=== PATIENT | male | born 1990 | race Hispanic/Latino ===

== ENCOUNTER → 2016-12-05 | Outpatient (CLI) | payer OTHER ==
--- NOTE | 2016-12-05 16:46 | REP ---
MR LUMBAR SPINE WITHOUT AND WITH CONTRAST: HISTORY: Back pain. There is no disc bulge of herniation at the L1-2 and L5-S1 levels. The nerves exit the neural foramina without compression. A diffuse disc bulge is present at the L2-3 level. There is minimal compression of the thecal sac. The L2 nerves exit the neural foramina without compression. A diffuse disc bulge is present at the L3-4 level. There is minimal compression of the thecal sac. The L3 nerves exit the neural foramina without compression. A diffuse disc bulge is present at the L4-5 level. There is minimal compression of the thecal sac. The L4 nerves exit the neural foramina without compression. The conus medullaris is normal in appearance terminating at the level of the T12-L1 intervertebral discs. Normal signal intensity is present in the lumbar intervertebral discs and vertebral bodies. IMPRESSION: Diffuse disc bulges at the L2-3 through L4-5 levels with minimal thecal sac compression. Signed by Matias Thomson MD 12/08/2016 08:30 A
== END | disposition home or self-care (01) ==
LOC: M RAD 14:41
PROVIDERS: ATTEND Physician Assistant
DX: M51.06 Intervertebral disc disorders with myelopathy, lumbar region (principal)
CPT/HCPCS: 72158; A9576

== ENCOUNTER 2019-06-07 00:34 | Emergency (ER) | payer OTHER ==
[2019-06-07 01:09] LABS: HEMATOCRIT 44.6 % (42.0-52.0); HEMOGLOBIN 15.6 g/dl (13.5-17.5); MEAN CORPUSCULAR HEMOGLOBIN 30.7 pg (27.0-33.0); MEAN CORPUSCULAR VOLUME 87.8 fl (80.0-96.0); PLATELET COUNT, AUTOMATED 326 10^3/uL (150-450); RED BLOOD COUNT 5.08 10^6/uL (4.30-6.10); WHITE BLOOD COUNT 11.5 10^3/uL (4.0-10.0)
[2019-06-07 01:37] LABS: AMPHETAMINES LEVEL URINE NEGATIVE (NEGATIVE); BARBITURATES URINE NEGATIVE (NEGATIVE); BENZODIAZEPINES URINE NEGATIVE (NEGATIVE); CANNABINOIDS URINE NEGATIVE (NEGATIVE); COCAINE METABOLITE URINE NEGATIVE (NEGATIVE); METHADONE URINE NEGATIVE (NEGATIVE); OPIATES URINE NEGATIVE (NEGATIVE); PHENCYCLIDINE URINE NEGATIVE (NEGATIVE)
[2019-06-07 01:47] LABS: ACETAMINOPHEN LEVEL < 2.0 UG/ML (10.0-30.0); ALBUMIN 4.1 GM/DL (3.2-5.2); ALT/SGPT 47 U/L (12-78); BILIRUBIN,DIRECT < 0.1 MG/DL (0.0-0.2); BILIRUBIN,TOTAL 0.1 MG/DL (0.2-1.0); BLOOD UREA NITROGEN 9 MG/DL (7-18); CALCIUM LEVEL 8.9 MG/DL (8.5-10.1); CARBON DIOXIDE LEVEL 29 MEQ/L (21-32); CHLORIDE LEVEL 107 MEQ/L (98-107); CREATININE FOR GFR 1.38 MG/DL (0.70-1.30); ETHYL ALCOHOL (ETHANOL) 0.301 % (0.000-0.010); GLOMERULAR FILTRATION RATE > 60.0 (>60); GLUCOSE, FASTING 145 MG/DL (70-100); POTASSIUM SERUM 3.9 MEQ/L (3.5-5.1); SALICYLATE LEVEL < 1.7 MG/DL (5.0-30.0); SODIUM LEVEL 145 MEQ/L (136-145); TOTAL PROTEIN 7.7 GM/DL (6.4-8.2)
[2019-06-07 12:06] VITALS: BP 140/89
== END 2019-06-07 12:07 | disposition home or self-care (01) ==
LOC: M ED 00:34
DX: F10.988 Alcohol use, unspecified with other alcohol-induced disorder (principal); Z91.011 Allergy to milk products
CPT/HCPCS: 36415; 80048; 80076; 80307; 84443; 85027; 99284; G0480

== ENCOUNTER 2019-08-08 20:58 | Inpatient (IN) | payer OTHER ==
[~2019-08-08] VITALS: Ht 175.3 cm; Wt 90.4 kg
[2019-08-08 21:31] LABS: HEMATOCRIT 50.5 % (42.0-52.0); HEMOGLOBIN 17.2 g/dl (13.5-17.5); MEAN CORPUSCULAR HEMOGLOBIN 30.4 pg (27.0-33.0); MEAN CORPUSCULAR HGB CONC 34.1 g/dl (32.0-36.5); MEAN CORPUSCULAR VOLUME 89.2 fl (80.0-96.0); PLATELET COUNT, AUTOMATED 350 10^3/uL (150-450); RED BLOOD COUNT 5.66 10^6/uL (4.30-6.10); WHITE BLOOD COUNT 10.7 10^3/uL (4.0-10.0)
[2019-08-08 22:05] LABS: AMPHETAMINES LEVEL URINE NEGATIVE (NEGATIVE); BARBITURATES URINE NEGATIVE (NEGATIVE); BENZODIAZEPINES URINE NEGATIVE (NEGATIVE); CANNABINOIDS URINE NEGATIVE (NEGATIVE); COCAINE METABOLITE URINE NEGATIVE (NEGATIVE); METHADONE URINE NEGATIVE (NEGATIVE); OPIATES URINE NEGATIVE (NEGATIVE); PHENCYCLIDINE URINE NEGATIVE (NEGATIVE)
[2019-08-08 22:09] LABS: ACETAMINOPHEN LEVEL < 2.0 UG/ML (10.0-30.0); ALBUMIN 4.2 GM/DL (3.2-5.2); ALT/SGPT 47 U/L (12-78); BILIRUBIN,DIRECT 0.1 MG/DL (0.0-0.2); BILIRUBIN,TOTAL 0.3 MG/DL (0.2-1.0); BLOOD UREA NITROGEN 9 MG/DL (7-18); CALCIUM LEVEL 8.7 MG/DL (8.5-10.1); CARBON DIOXIDE LEVEL 26 MEQ/L (21-32); CHLORIDE LEVEL 109 MEQ/L (98-107); ETHYL ALCOHOL (ETHANOL) 0.337 % (0.000-0.010); GLOMERULAR FILTRATION RATE > 60.0 (>60); GLUCOSE, FASTING 108 MG/DL (70-100); SALICYLATE LEVEL < 1.7 MG/DL (5.0-30.0); SODIUM LEVEL 146 MEQ/L (136-145); THYROID STIMULATING HORMONE 0.634 uIU/ML (0.358-3.740); TOTAL PROTEIN 7.6 GM/DL (6.4-8.2)
[2019-08-09] MEDS ORDERED: ACETAMINOPHEN TAB 650MG DOSE (2X325MG) PO PRN (13:15)
[2019-08-09] MEDS ORDERED: LORazepam 2 MG TAB PO PRN (13:15)
[2019-08-09] MEDS ORDERED: MOM 30ML SUSPENSION UDC PO PRN (13:15)
[2019-08-09] MEDS ORDERED: MAALOX 30 ML SUSP *UDC PO PRN (13:15)
[2019-08-09 14:07] VITALS: BP 146/94
[2019-08-09 14:08] VITALS: BP 146/94
[2019-08-09] MEDS: MULTIVITAMINS/MINERALS THERAP 1 TAB PO SCH (15:33)
[2019-08-09] MEDS: FOLIC ACID 1 MG TAB PO SCH (15:33)
[2019-08-09] MEDS: THIAMINE 100 MG TAB PO SCH (21:32)
[2019-08-09] MEDS: traZODone 50 MG TAB PO PRN (21:33)
[2019-08-10 06:35] VITALS: BP 134/75
[2019-08-10] MEDS: FOLIC ACID 1 MG TAB PO SCH (08:06)
[2019-08-10] MEDS: THIAMINE 100 MG TAB PO SCH ×2 (08:06→21:50)
[2019-08-10] MEDS: MULTIVITAMINS/MINERALS THERAP 1 TAB PO SCH (08:06)
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
[2019-08-10 12:19] VITALS: BP 158/80
[2019-08-10 12:21] VITALS: BP 158/80
[2019-08-10] MEDS ORDERED: VIVI380I IM (13:13)
[2019-08-10] MEDS ORDERED: NALTREXONE 50 MG TAB PO ONE (14:00)
[2019-08-10] MEDS ORDERED: buPROPion **XL** TABLET 150MG (WELLBUTRIN XL) PO ONE (14:00)
[2019-08-10 14:19] VITALS: BP 142/72
[2019-08-10 16:52] VITALS: BP 123/71
[2019-08-10] MEDS: ACAMPROSATE CALCIUM 333 MG TABLET (CAMPRAL) PO SCH (21:49)
[2019-08-11 06:29] VITALS: BP 135/81
[2019-08-11] MEDS: FOLIC ACID 1 MG TAB PO SCH (08:39)
[2019-08-11] MEDS: THIAMINE 100 MG TAB PO SCH ×2 (08:39→22:04)
[2019-08-11] MEDS: MULTIVITAMINS/MINERALS THERAP 1 TAB PO SCH (08:39)
[2019-08-11 08:42] VITALS: BP 164/86
[2019-08-11] MEDS ORDERED: buPROPion **XL** TABLET 150MG (WELLBUTRIN XL) PO SCH (09:00)
[2019-08-11] MEDS ORDERED: NALTREXONE 50 MG TAB PO SCH (09:00)
--- NOTE | 2019-08-11 10:50 | CR ---
DATE OF CONSULTATION: 08/10/2019 at 6 p.m.. REASON FOR CONSULTATION: Medical evaluation inpatient psychiatry unit. 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 He is in the inpatient psychiatry unit secondary to threatening suicidal ideation with a firearm. On admission patient's alcohol blood level of 0.33. He has been placed on alcohol withdrawal protocol. At this point and time he has only received one dose of Ativan and says that he is doing quite well in regards to any noticeable symptoms of alcohol withdrawal symptoms. ALLERGIES: No known drug allergies. He does have an allergy to milk protein. MEDICATIONS: As far as home medications the patient does not take any home medications. He has not had any surgeries. SOCIAL HISTORY: The patient is an enlisted soldier. He does not smoke. He will binge drink from time to time. He has not used any illicit drugs since joining the . FAMILY HISTORY: Notable for depression, diabetes, in several members. REVIEW OF SYSTEMS: Otherwise negative. PHYSICAL EXAMINATION: The patient's temperature is 98.7, heart rate 70 and regular, respirations 15. General, Mr. Hernandez is a healthy appearing adult male who appears in no acute distress. His head is atraumatic. Pupils are symmetric and reactive to light. Extraocular movements are full in all directions. Tympanic membranes are visualized bilaterally. He has cerumen in the left ear canal precluding evaluation of his left tympanic membrane. His right tympanic membrane is visualized and is without any acute pathology. His naris are patent. Oropharynx is clear without erythema. Mucosa is moist, no abscess, ulcers or other lesions on his tongue are appreciated. His neck is supple. No palpable lymphadenopathy. No thyromegaly. Lungs sounds are appreciated bilaterally. He has no adventitious lung sounds are appreciated bilaterally. He had no adventitious lung sounds on osculation. Heart S1, S2 without any audible murmurs or gallops. His pulse check indicates that he has a normal sinus rhythm. His abdomen is soft and nontender and nondistended with active bowel sounds. No palpable organomegaly. His extremities are without any cyanosis, clubbing or edema. Neurologic exam, cranial nerves II through XII are grossly intact. No focal or neurologic deficit. His gait is normal appearance. His coordination os symmetric without any noticeable deviations. Psychiatric, the patient is alert and he is shy does not make good eye contact. He has a reserved manner. IMAGING: None were done during this hospitalization. LABORATORY: White count 10.7, hemoglobin 17.2, hematocrit 15.5, platelet counts 350, sodium 143, potassium 109, bicarbonate 26, anion gap 11, creatinine 1, glucose 108, calcium 8.7, AST 33, ALT 47, albumin 4.3, TSH 0.63. Urine drug screen was negative. Acetaminophen level was less than 2.0, alcohol level was 0.337. IMPRESSION: 1. Mild acute depression. 2. Suicidal ideation. 3. Acute alcohol intoxication. 4. History of alcoholism. 5. Normal adult male physical examination. RECOMMENDATIONS: Patient is stable from a medical standpoint. I agree with placing him on alcohol withdrawal protocol and continue to monitor him. Please contact me should any medical issues arise.
--- NOTE | 2019-08-11 12:40 | MHIPNPDOC ---
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 He had reportedly made some suicidal statements but had fallen asleep next to an antique gun. His became concerned and subsequently called the police, who had brought him in for evaluation. After he became sober, he was admitted out of an abundance of caution. When the patient was met with, he emphatically denied that he had any suicidal thoughts and that while he was intoxicated he likely said various things, but that he does have various antique guns that he doesn't have ammunition for and that he has been currently in [facility] treatment for alcohol. He reports that he's concerned about getting in trouble for another use of alcohol and reports a significant alcohol use problem recently. He describes that he has been expe riencing some depression with fatigue, loss of interest, moodiness, loss of energy, and concentration and focus deficits as well as insomnia in the setting of financial stressors and marital stressors as well, with a recent separation becoming possible. He reports that he is interested in getting treatment for his alcohol and depression. He reports that, while he'll go to work, his depression continues to get worse and that he had not realized the signs and symptoms. He had an intake appointment with behavioral health and has a therapist but no medication prescriber. Interval History The patient is met with today. He reports that he's had some improved mood, energy and less fatigue. He reported he was able to sleep well last night, but does note some fatigue today. His alcohol withdrawal scores have been consistently low. He reports that the Naltrexone is helpful, and that he doesn't notice craving for alcohol at 50 and he feels positive. His insurance declined to pay for Vivitrol. The patient's chain of command was uncomfortable with him returning home as they want to complete an investigation as they were concerned about the presence of a firearm that could be illegal. The safety planning is not clear at this time and the chain of command wishes to have more time to thoroughly investigate the situation. Nursing note no behavioral problems, attends groups well. Review Of Systems Denies any chest pain, palpitations, shortness of breath, dizziness, tremors, headache, dry mouth, constipation, nausea, vomiting, diarrhea. Admits to mild diarrhea secondary to his alcohol use which he states happens afterwards. Psychotherapy None on this visit. Vital Signs Reviewed. Mental Status Examination General: Well dressed with good hygiene Speech: Spontaneous and fluid Thought processes: Linear and logical MSK: Smooth and coordinated gait, no signs of tremors or involuntary orofacial movements Thought content: Less hopelessness Abstract reasoning, and computation: Intact Description of associations: Intact Description of abnormal or psychotic thoughts: Denies any suicidal or homicidal ideation. Denies any auditory or visual hallucinations. Does not appear to be responding to internal stimuli. Does not appear to be endorsing any bizarre or paranoid ideation. Judgment: fair Insight: fair Orientation: Alert and orientated 3 Cognition: Grossly normal Recent and remote memory: Intact Attention span and concentration: Intact Fund of knowledge: Adequate Mood: "Okay" Affect: Less dysthymic. with a constricted range Diagnoses Unspecified depressive disorder. Rule out adjustment versus substance use versus MDD. Alcohol use disorder, severe. Assessment and Plan Increase Wellbutrin to 300 mg daily, Naltrexone to 100 mg daily with positive effects noted so far. Likely discharge on Thursday once safe discharge can be arranged. Disposition Patient will likely be discharged on Thursday once a safe discharge could be ascertained due to the aforementioned issues that have brought him in with firearms, coordination of chain of command is underway. Time Spent 15 minutes [id number]. Vital Signs Vital Signs Date Time Temp Pulse Resp B/P (MAP) Pulse Ox O2 Delivery O2 Flow Rate FiO2 08/11/19 08:42 63 164/86 08/11/19 06:29 97.8 14 08/09/19 14:07 99 08/09/19 13:32 Room Air Current Medications Current Medications Medications (Trade) Dose Ordered Sig/Ana Route PRN Reason Start Time Stop Time Status Last Admin Dose Admin Acamprosate (Campral) 333 mg QHS PO 08/10/19 21:00 08/10/19 21:49 Acetaminophen (Tylenol Tab) 650 mg Q6HP PRN PO HEADACHE or DISCOMFORT 08/09/19 13:15 Al Hydrox/Mg Hydrox/Simethicone (Mylanta) 30 ml Q4HP PRN PO HEARTBURN/INDIGESTION 08/09/19 13:15 Bupropion HCl (Wellbutrin Xl) 150 mg DAILY PO 08/11/19 09:00 08/11/19 08:40 Folic Acid (Folic Acid) 1 mg DAILY PO 08/09/19 09:00 08/11/19 08:39 Home Med (Med Rec Complete!) ASDIRECTED XX 08/09/19 14:15 08/09/19 14:15 DC Lorazepam (Ativan) 2 mg ASDIRECTED PRN PO SEE PROTOCOL 08/09/19 13:15 08/10/19 12:44 Magnesium Hydroxide (Milk Of Magnesia) 30 ml DAILYPRN PRN PO CONSTIPATION 08/09/19 13:15 Multivitamins (Theragram-M) 1 tab DAILY PO 08/09/19 09:00 08/11/19 08:39 Naltrexone HCl (Revia) 50 mg DAILY PO 08/11/19 09:00 08/11/19 08:40 Thiamine HCl (Thiamine HCl) 100 mg BID PO 08/09/19 21:00 08/12/19 20:59 08/11/19 08:39 Trazodone HCl (Desyrel) 50 mg QHSP PRN PO INSOMNIA 08/09/19 13:15 08/09/19 21:33 Allergies Coded Allergies: milk (Verified Allergy, Unknown, 08/08/19) JULISSA RAINEY DO Aug 11, 2019 12:40
[2019-08-11 17:18] VITALS: BP 144/76
[2019-08-11 18:00] VITALS: BP 144/76
[2019-08-11 22:00] VITALS: BP 144/76
[2019-08-11] MEDS: ACAMPROSATE CALCIUM 333 MG TABLET (CAMPRAL) PO SCH (22:04)
[2019-08-12 06:05] VITALS: BP 124/65
--- NOTE | 2019-08-12 09:30 | MHIPNPDOC ---
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 He had reportedly made some suicidal statements but had fallen asleep next to an antique gun. His became concerned and subsequently called the police, who had brought him in for evaluation. After he became sober, he was admitted out of an abundance of caution. When the patient was met with, he emphatically denied that he had any suicidal thoughts and that while he was intoxicated he likely said various things, but that he does have various antique guns that he doesn't have ammunition for and that he has been currently in [facility] treatment for alcohol. He reports that he's concerned about getting in trouble for another use of alcohol and reports a significant alcohol use problem recently. He describes that he has been exp eriencing some depression with fatigue, loss of interest, moodiness, loss of energy, and concentration and focus deficits as well as insomnia in the setting of financial stressors and marital stressors as well, with a recent separation becoming possible. He reports that he is interested in getting treatment for his alcohol and depression. He reports that, while he'll go to work, his depression continues to get worse and that he had not realized the signs and symptoms. He had an intake appointment with behavioral health and has a therapist but no medication prescriber. Interval History Patient is met with today with his . He reports that he is doing better with improved mood, less fatigue, better motivation, less concentration and focus problems and more hope for the future. reports that she was interested in the discharge process. Currently, the investigation is pending with Rajesh Mills with the current discharge plan being Thursday. He reports he's doing well, no major behavioral problems on the unit. Nursing staff note that he is social and amenable on the unit. Reports no cravings with the naltrexone, tolerating well. Review Of Systems General: Denies fever or weight changes Cardiovascular: Denies Chest pain or palpations GI: Denies Nausea, vomiting, or bowel changes Respiratory: Denies shortness of breath or cough Neuro: Denies dizziness, tremors Derm: Denies any rashes or pruritus Psychotherapy None on this visit. Vital Signs Reviewed. Mental Status Examination General: Well dressed with good hygiene Speech: Spontaneous and fluid Thought processes: Linear and logical MSK: Smooth and coordinated gait, no signs of tremors or involuntary orofacial movements Thought content: Future orientated Abstract reasoning, and computation: Intact Description of associations: Intact Description of abnormal or psychotic thoughts: Denies any suicidal or homicidal ideation. Denies any auditory or visual hallucinations. Does not appear to be responding to internal stimuli. Does not appear to be endorsing any bizarre or paranoid ideation. Judgment: fair Insight: fair Orientation: Alert and orientated 3 Cognition: Grossly normal Recent and remote memory: Intact Attention span and concentration: Intact Fund of knowledge: Adequate Mood: "okay" Affect: Euthymic with a full range Diagnoses Unspecified depressive disorder. Rule out adjustment versus substance use versus MDD. Alcohol use disorder, severe. Assessment and Plan Continue medications as below. Disposition Discharge Thursday. Time Spent 20 minutes [id number]. Thursday Vital Signs Vital Signs Date Time Temp Pulse Resp B/P (MAP) Pulse Ox O2 Delivery O2 Flow Rate FiO2 08/12/19 06:05 97.7 80 14 124/65 (84) 08/09/19 14:07 99 08/09/19 13:32 Room Air Current Medications Current Medications Medications (Trade) Dose Ordered Sig/Ana Route PRN Reason Start Time Stop Time Status Last Admin Dose Admin Acamprosate (Campral) 333 mg QHS PO 08/10/19 21:00 08/11/19 22:04 Acetaminophen (Tylenol Tab) 650 mg Q6HP PRN PO HEADACHE or DISCOMFORT 08/09/19 13:15 Al Hydrox/Mg Hydrox/Simethicone (Mylanta) 30 ml Q4HP PRN PO HEARTBURN/INDIGESTION 08/09/19 13:15 Bupropion HCl (Wellbutrin Xl) 150 mg DAILY PO 08/11/19 09:00 08/11/19 16:41 DC 08/11/19 08:40 Bupropion HCl (Wellbutrin Xl) 300 mg DAILY PO 08/12/19 09:00 Folic Acid (Folic Acid) 1 mg DAILY PO 08/09/19 09:00 08/11/19 08:39 Home Med (Med Rec Complete!) ASDIRECTED XX 08/09/19 14:15 08/09/19 14:15 DC Lorazepam (Ativan) 2 mg ASDIRECTED PRN PO SEE PROTOCOL 08/09/19 13:15 08/10/19 12:44 Magnesium Hydroxide (Milk Of Magnesia) 30 ml DAILYPRN PRN PO CONSTIPATION 08/09/19 13:15 Multivitamins (Theragram-M) 1 tab DAILY PO 08/09/19 09:00 08/11/19 08:39 Naltrexone HCl (Revia) 50 mg DAILY PO 08/11/19 09:00 08/11/19 16:41 DC 08/11/19 08:40 Naltrexone HCl (Revia) 100 mg DAILY PO 08/12/19 09:00 Thiamine HCl (Thiamine HCl) 100 mg BID PO 08/09/19 21:00 08/12/19 20:59 08/11/19 22:04 Trazodone HCl (Desyrel) 50 mg QHSP PRN PO INSOMNIA 08/09/19 13:15 08/09/19 21:33 Allergies Coded Allergies: milk (Verified Allergy, Unknown, 08/08/19) JULISSA RAINEY DO Aug 12, 2019 09:30
[2019-08-12] MEDS: MULTIVITAMINS/MINERALS THERAP 1 TAB PO SCH (09:57)
[2019-08-12] MEDS: THIAMINE 100 MG TAB PO SCH (09:57)
[2019-08-12] MEDS: NALTREXONE 50 MG TAB PO SCH (09:57)
[2019-08-12] MEDS: FOLIC ACID 1 MG TAB PO SCH (09:57)
[2019-08-12] MEDS: buPROPion **XL** TABLET 150MG (WELLBUTRIN XL) PO SCH (09:57)
[2019-08-12 15:47] VITALS: BP 132/81
[2019-08-12 16:42] VITALS: BP 132/81
[2019-08-12 19:55] VITALS: BP 132/81
[2019-08-12] MEDS: ACAMPROSATE CALCIUM 333 MG TABLET (CAMPRAL) PO SCH (21:03)
[2019-08-12] MEDS: traZODone 50 MG TAB PO PRN (21:03)
[2019-08-13 06:37] VITALS: BP 124/82
[2019-08-13 07:40] VITALS: BP 124/82
[2019-08-13] MEDS: NALTREXONE 50 MG TAB PO SCH (08:19)
[2019-08-13] MEDS: FOLIC ACID 1 MG TAB PO SCH (08:19)
[2019-08-13] MEDS: buPROPion **XL** TABLET 150MG (WELLBUTRIN XL) PO SCH (08:19)
[2019-08-13] MEDS: MULTIVITAMINS/MINERALS THERAP 1 TAB PO SCH (08:19)
[2019-08-13 16:23] VITALS: BP_SYST 137; BP_SYST 146; BP_DIAS 73; BP_DIAS 83
[2019-08-13] MEDS: ACAMPROSATE CALCIUM 333 MG TABLET (CAMPRAL) PO SCH (20:59)
[2019-08-14] MEDS: traZODone 50 MG TAB PO PRN ×2 (00:03→23:28)
[2019-08-14 06:49] VITALS: BP 128/76
[2019-08-14 08:13] VITALS: BP 128/70
--- NOTE | 2019-08-14 08:17 | MHIPN ---
DATE: 08/09/2019 CHIEF COMPLAINT: Says feels good. SUBJECTIVE: Seen for followup in the presence of staff. Says has been feeling better, less depressed. Says has no cravings for alcohol. Sleep is improved. MENTAL STATUS EXAM: Neat, cooperative. No agitation. No psychomotor retardation. He is coherent. Affect is reactive. Denies any thoughts of harming himself or anyone else. No evidence of any psychosis. Cognition grossly intact. Judgment is good, insight improved. ASSESSMENT: Unspecified depressive disorder. PLAN: Continue current care and observation. Continue encouragement in participation of activities in the unit. VITAL SIGNS: Blood pressure 124/82. Pulse 63. Temperature 98.3.
[2019-08-14] MEDS: MULTIVITAMINS/MINERALS THERAP 1 TAB PO SCH (08:32)
[2019-08-14] MEDS: NALTREXONE 50 MG TAB PO SCH (08:32)
[2019-08-14] MEDS: buPROPion **XL** TABLET 150MG (WELLBUTRIN XL) PO SCH (08:32)
[2019-08-14] MEDS: FOLIC ACID 1 MG TAB PO SCH (08:33)
[2019-08-14 16:07] VITALS: BP 133/71
[2019-08-14 17:00] VITALS: BP 133/71
[2019-08-14] MEDS: ACAMPROSATE CALCIUM 333 MG TABLET (CAMPRAL) PO SCH (20:51)
[2019-08-15 06:25] VITALS: BP 141/79
[2019-08-15] MEDS: MULTIVITAMINS/MINERALS THERAP 1 TAB PO SCH (08:31)
[2019-08-15] MEDS: buPROPion **XL** TABLET 150MG (WELLBUTRIN XL) PO SCH (08:31)
[2019-08-15] MEDS: FOLIC ACID 1 MG TAB PO SCH (08:31)
[2019-08-15] MEDS: NALTREXONE 50 MG TAB PO SCH (08:31)
[2019-08-15] MEDS ORDERED: NALT50TA4 PO ×2 (09:49→11:18)
[2019-08-15] MEDS ORDERED: ACAM0.05 PO ×2 (09:49→11:18)
[2019-08-15] MEDS ORDERED: WELLTAB40 PO ×2 (09:49→11:18)
--- NOTE | 2019-08-15 10:00 | MHDSPDOC ---
[facility] Discharge Summary Discharge Summary DATE OF ADMISSION: Aug 09, 2019 at 13:15 DATE OF DISCHARGE: 08/15/19 Date of Service: 08/15/2019 Diagnoses Unspecified depressive disorder. Rule out adjustment versus substance use versus MDD. Alcohol use disorder, severe. 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 He had reportedly made some suicidal statements but had fallen asleep next to an antique gun. His became concerned and subsequently called the police, who had brought him in for evaluation. After he became sober, he was admitted out of an abundance of caution. Consultants Involved Hospitalist/PCP screening Treatment and Progress On The Unit The patient was met with after he had presented to the unit. He was started on Wellbutrin 150 mg daily of extended release for his depression with positive effects, increasing his mood, lowering his fatigue and increasing his motivation. He was increased to 300 mg with very positive effects and remission of his depression symptoms. He was started on naltrexone 50 mg for alcohol cravings and acamprosate 330 mg nightly for insomnia related to likely alcohol problems. He was additionally on a alcohol withdrawal protocol requiring several doses in order to soothe signs of alcohol withdrawal. He did well and was increased to 100 mg of naltrexone. Continued on the acamprosate 330 mg with positive effects. He subsequently asked to leave and at the time of discharge did not meet involuntary criteria due to the lack of suicidal or homicidal ideation and lack of major signs of major mental illness and declined further voluntary admission. He was converted from a 939 to a voluntary after his first day as he had recognized his need for treatment and thus was discharged in good kylah. Discharge Assessment The patient, a 29 year old man with a history of severe alcohol problems and possible depression underneath, is treated for his alcoholism and depression and did significantly well. He requests to leave. He is on a voluntary admission and does not meet involuntary criteria due to the preponderance of the information above and declines further voluntary stay and thus is discharged in good kylah. Mental Status Examination General: Well dressed with good hygiene Speech: Spontaneous and fluid Thought processes: Linear and logical MSK: Smooth and coordinated gait, no signs of tremors or involuntary orofacial movements Thought content: Future orientated Abstract reasoning, and computation: Intact Description of associations: Intact Description of abnormal or psychotic thoughts: Denies any suicidal or homicidal ideation. Denies any auditory or visual hallucinations. Does not appear to be responding to internal stimuli. Does not appear to be endorsing any bizarre or paranoid ideation. Judgment: fair Insight: fair Orientation: Alert and orientated 3 Cognition: Grossly normal Recent and remote memory: Intact Attention span and concentration: Intact Fund of knowledge: Adequate Mood: "okay" Affect: Euthymic with a full range Follow Up The social work team worked during the predischarge meeting in order to evaluate for further issues of lethality address them fully before discharge. They worked on safety planning with the patient's family members in order to ensure that the patient will have a safe and effective discharge. Time Spent The amount of time spent in the coordination of care for this patient was approximately 20 minutes. Thursday Vital Signs/I&Os Vital Signs Date Time Temp Pulse Resp B/P (MAP) Pulse Ox O2 Delivery O2 Flow Rate FiO2 08/15/19 06:25 97.6 89 16 141/79 (99) 08/09/19 14:07 99 08/09/19 13:32 Room Air Medications Scheduled Acamprosate Calcium (Acamprosate Calcium) 333 Mg Tablet.dr, 333 MG PO QHS for alcohol/sleep for 7 Days, #7 Bupropion HCl (Wellbutrin Xl) 300 Mg Tab.er.24h, 1 TAB PO QAM for mood for 7 Days, #7 Naltrexone HCl (Naltrexone HCl) 50 Mg Tablet, 100 MG PO DAILY for alcohol for 7 Days, #14 Scheduled PRN Trazodone HCl (Trazodone HCl) 50 Mg Tablet, 50 MG PO QHSP PRN for INSOMNIA for 7 Days, #7 Allergies Coded Allergies: milk (Verified Allergy, Unknown, 08/08/19) JULISSA RAINEY DO Aug 15, 2019 10:00
[2019-08-15] MEDS ORDERED: TRAZ-252 PO ×2 (10:19→11:18)
== END 2019-08-15 11:00 | disposition home or self-care (01) | DRG 881 ==
LOC: M ED 20:58 → M ED INP 08-09 13:15 → M PSY 08-09 13:50
PROVIDERS: ADMIT Psychiatry & Neurology Addiction Medicine; ATTEND Psychiatry & Neurology Addiction Medicine
DX: F32.9 Major depressive disorder, single episode, unspecified (principal); R45.851 Suicidal ideations; F43.20 Adjustment disorder, unspecified; F10.229 Alcohol dependence with intoxication, unspecified; F19.10 Other psychoactive substance abuse, uncomplicated; Z63.0 Problems in relationship with spouse or partner; Z91.011 Allergy to milk products

== ENCOUNTER 2020-05-19 12:54 | Emergency (ER) | payer OTHER ==
[~2020-05-19] VITALS: Ht 175.3 cm; Wt 93.2 kg
[~2020-05-19 12:54] MED LIST: ACAM0.05 PO; NALT50TA4 PO; TRAZ-252 PO; VIVI380I IM; WELLTAB40 PO
[2020-05-19 13:08] VITALS: BP 116/72
[2020-05-19] MEDS ORDERED: DOCU100C16 (13:13)
[2020-05-19] MEDS ORDERED: NAPR-885 (13:13)
[2020-05-19] MEDS ORDERED: OXYC1TAB23 (13:13)
[2020-05-19] MEDS ORDERED: ONDANSETRON 4 MG ORAL DISINTEGRATING TAB PO ONE (13:45)
[2020-05-19] MEDS ORDERED: MORPHINE 10 MG/ML 1ML VIAL (J2270) IM ONE (13:45)
== END 2020-05-19 14:45 | disposition home or self-care (01) ==
LOC: M ED 12:54
DX: G89.18 Other acute postprocedural pain (principal); F32.9 Major depressive disorder, single episode, unspecified; M25.561 Pain in right knee; Z91.011 Allergy to milk products; Z87.891 Personal history of nicotine dependence; Z79.899 Other long term (current) drug therapy
CPT/HCPCS: 99282; J2270; Q0162